=== PATIENT | male | born 1965 | race American Indian/Alaskan Native ===

== ENCOUNTER 2021-04-13 07:37 | Emergency (ER) | payer OTHER ==
--- NOTE | 2021-04-13 11:40 | Emergency Department Report ---
ED General Adult HPI - General Chief complaint: Urogenital-Male Stated complaint: FREQUENT URINATION Time Seen by Provider: 04/13/21 10:48 Source: patient Mode of arrival: Ambulatory Limitations: No Limitations - History of Present Illness Initial comments: 55-year-old -Citizen Of [place] male patient presents with complaints of urinary frequency x2 days. He states a history of being previously diabetic and taken off his Metformin 5 years ago. He denies any dysuria/hematuria, abdominal pain, fever/chills/sweats, nausea/vomiting, or stool changes. No testicular pain/swelling or penile discharge per patient. He states he is otherwise feeling well. He is not currently following with a PCP. -: Sudden - Related Data Previous Rx's Medication Instructions Recorded Last Taken Type metFORMIN [Glucophage] 500 mg PO QDAY 30 Days #30 tab 04/13/21 Unknown Rx Allergies Allergy/AdvReac Type Severity Reaction Status Date / Time No Known Allergies Allergy Unverified 04/13/21 07:53 ED Review of Systems ROS: Stated complaint: FREQUENT URINATION Other details as noted in HPI Constitutional: denies: chills, diaphoresis, fever, malaise, weakness Cardiovascular: denies: chest pain Genitourinary: urgency, frequency. denies: dysuria, hematuria, discharge, testicular pain, testicular mass Skin: denies: lesions, change in color Hematological/Lymphatic: denies: swollen glands ED Past Medical Hx - Past Medical History Hx Diabetes: Yes (Taken off meds 5 years ago) - Surgical History Past Surgical History?: Yes Additional Surgical History: hernia repair - Medications Home Medications: Home Medications Medication Instructions Recorded Confirmed Last Taken Type metFORMIN [Glucophage] 500 mg PO QDAY 30 Days #30 tab 04/13/21 Unknown Rx ED Physical Exam - General Limitations: No Limitations General appearance: alert, in no apparent distress - Head Head exam: Present: atraumatic, normocephalic - Eye Eye exam: Present: normal appearance. Absent: scleral icterus - Respiratory Respiratory exam: Present: normal lung sounds bilaterally. Absent: respiratory distress - Cardiovascular Cardiovascular Exam: Present: regular rate, normal rhythm - GI/Abdominal GI/Abdominal exam: Present: soft, normal bowel sounds. Absent: distended, tenderness, guarding, rebound, rigid - Back Exam Back exam: Absent: CVA tenderness (R), CVA tenderness (L) - Neurological Exam Neurological exam: Present: alert, oriented X3, normal gait - Psychiatric Psychiatric exam: Present: normal affect, normal mood - Skin Skin exam: Present: warm, dry, intact, normal color. Absent: rash ED Course Vital Signs 04/13/21 07:54 Temperature 97.4 F L Pulse Rate 82 Respiratory 18 Rate Blood Pressure 142/96 O2 Sat by Pulse 99 Oximetry ED Medical Decision Making - Medical Decision Making 55-year-old -Citizen Of [place] male patient presents with complaints of urinary frequency x2 days. He states a history of being previously diabetic and taken off his Metformin 5 years ago. He denies any dysuria/hematuria, abdominal pain, fever/chills/sweats, nausea/vomiting, or stool changes. No testicular pain/swelling or penile discharge per patient. He states he is otherwise feeling well. He is not currently following with a PCP. UA shows > 500 glucose without signs of infection. Physical exam is normal. POC glucose initially 271. Will restart patient on Metformin and have him follow-up with his primary care provider within the next 3 to 5 days. Patient also informed to have his blood pressure rechecked. Vitals are within normal limits, he is well-appearing, he is stable for discharge home. Discussed signs and symptoms that should prompt immediate return to the emergency department in detail patient verbalized understanding. Critical care attestation.: If time is entered above; I have spent that time in minutes in the direct care of this critically ill patient, excluding procedure time. ED Disposition Clinical Impression: Type 2 diabetes mellitus, Urinary frequency, Elevated blood pressure reading Disposition: DC- TO HOME OR SELFCARE Is pt being admited?: No Condition: Stable Instructions: Type 2 Diabetes Mellitus, Diagnosis, Adult, Carbohydrate Counting for Diabetes Mellitus, Adult, Diabetes Mellitus Type 2 in Adults (ED) Prescriptions: metFORMIN [Glucophage] 500 mg PO QDAY 30 Days #30 tab Referrals: [facility] [Provider Group] - 3-5 Days
[2021-04-13 11:44] LABS: Bilirubin,Urine NEG (Negative); Blood,Urine NEG (Negative); Color,Urine Yellow (Yellow); Urobilinogen,Urine < 2.0 mg/dL (<2.0); WBC,Urine < 1.0 /HPF (0.0-6.0)
[2021-04-13 11:59] LABS: Protein,Urine <15 mg/dL mg/dL (Negative)
[2021-04-13 12:22] VITALS: BP 130/82
== END 2021-04-13 12:23 | disposition home or self-care (01) ==
LOC: ED 07:37
DX: E11.9 Type 2 diabetes mellitus without complications (principal); R35.0 Frequency of micturition; R03.0 Elevated blood-pressure reading, without diagnosis of hypertension; Z98.890 Other specified postprocedural states; Z79.84 Long term (current) use of oral hypoglycemic drugs
CPT/HCPCS: 81001; 82962